=== PATIENT | female | born 1970 | race Caucasian/White ===

== ENCOUNTER → 2024-04-18 | Outpatient (CLI) | payer BC, SELFPAY ==
[2024-04-23 06:47] LABS: HIV Ag/Ab, 4th Gen NON-REACTIVE
== END | disposition home or self-care (01) ==
LOC: COPL 16:48
PROVIDERS: PCP Family Medicine; Referring Provider Psychiatry & Neurology Neurology; Visit Provider Psychiatry & Neurology Neurology
DX: G35 Multiple sclerosis (principal)
CPT/HCPCS: 36415; 87389

== ENCOUNTER 2024-06-29 13:52 | Outpatient (AMB) | payer BC, SELFPAY ==
[2024-06-29 14:28] VITALS: BP 115/78; PULSE 74; RESP 19; TEMP 36.4; O2SAT 99; BMI 27.8
--- NOTE | 2024-06-29 14:28 | PD.ORTHCLVIS ---
Vital signs 06/29/24 14:28 Height 1.6 m Height Method Stated Weight 71.441 kg Weight Measurement Method Standing Scale BMI 27.8 BP 115/78 Blood Pressure Source Automatic Cuff Blood Pressure Location Right Upper Arm Position Sitting Respiration 19 Pulse 74 Pulse Source Monitor Temp 97.6 F Temp Source Temporal Artery Scan Pulse Oximetry (%) 99 Oxygen Delivery Method Room Air Med/Allergies Allergies & Medications Allergies Penicillins Allergy (Mild, Verified 06/29/24 14:29) Rash Sulfa (Sulfonamide Antibiotics) Allergy (Mild, Verified 06/29/24 14:29) Rash Medication Reconciliation duloxetine 60 mg capsule,delayed release (Cymbalta) 60 mg PO QDAY 12/21/22 [History Confirmed 06/29/24] multivitamin 1 tab PO QAM 12/21/22 [History Confirmed 06/29/24] meloxicam 7.5 mg tablet 7.5 mg PO QDAY #45 tabs 06/29/24 [Rx] Exam Exam Patient is in no acute distress and is cooperative with the examination today. Breathing is nonlabored. In no respiratory distress. Bilateral extremities were evaluated and demonstrates sensation intact to light touch. Palpable pedal pulses are present. No significant edema is present. Bilateral hips were examined. The patient has no pain with log roll of the hips. Internal rotation to 30 degrees and external rotation to 30 degrees is painless. Negative FADIR. The left knee was examined. The left knee is in varus alignment. Range of motion from 0-115 degrees. Knee is stable to varus and valgus as well as AP translation with <5mm. Patient has a negative McMurrays. There is no pain with patellofemoral compression and no crepitus noted. The knee is tender to palpation medially. The right knee was also examined. The right knee is in varus alignment. Range of motion from 0-120 degrees. Knee is stable to varus and valgus as well as AP translation with <5mm. Patient has a negative McMurrays. There is no pain with patellofemoral compression and no crepitus noted. The knee is tender to palpation medially. Assessment and Plan Problem List (1) Degenerative arthritis of knee, bilateral: Status: Acute Plan: Patient is a 53-year-old female with bilateral knee pain and bilateral knee arthritis. She has tried PRP and some conservative treatment. She would like bilateral knee injections. He will need new x-rays as been over 2 years. We will see her back consider x-rays and we will get authorization for gel injections as she is looking for a noncortisone option We will see her back approximately 2 to 3 weeks for x-ray results of the injections Office Procedures GNS Level of Care Nursing/Assessment Patient Status: Initial/New Patient Nursing Assessment/Reassesment: Medication Reconciliation, Update PMH in EMR and Vital Signs Coordination of Care: Complex Care and Chronic Disease 1-5, Education Complex Pt/Fam, Consent,records obtained, informed consent, Results/Orders obtained and Staff clarify orders Special Needs: Language special needs New Patient Charge New Patient Point Assignment: 1094 New Patient Point Charge: 911 EMERGENCY SERVICES DISPATCHER Level 3 ([id number]) MA Intake Visit Data Collection New Patient or Established: New Patient [place] [facility] [place] Reason for Visit:: BILATERAL KNEE Seen by Clinical Staff ONLY (RN/MA): No Verbal consent obtained for Telemed visit?: No Medical Malpractice Paralegal Required: No PCP or OBGYN visit in last 3 months: Yes Hx Now: No Do You Feel Safe at Home: Yes Authorities Contacted: N/A Questionairres Past Medical History Past Medical History Have you ever been diagnosed with any of the following: Neurological Problems Seizures: No Peripheral Neuropathy: Yes Cardiology Problems Congestive Heart Failure: No Varicose Veins: Yes Respiratory Problems Chronic Obstructive Pulmonary Disease (COPD): No Stomache/Intestinal Problems Hepatitis: No Genital/Urinary Problems Renal Disease: No Reproductive Problems Previous Pregnancies: Yes Musculoskeletal Problems Arthritis: Yes Endocrine Problems Diabetes Mellitus Type 1: No Diabetes Mellitus Type 2: No Psychologic Problems Depression: Yes Other Problems Hospitalization: No Shingles: No Blood Transfusions: No Blood Transfusion Reaction: No Anesthesia Reactions: No MRSA: No Cancer: No Subjective Visit Visit for: new patient and knee Immunization / Flu Flu Vaccine in the Last 12 Months: Yes Flu Vaccine Exclusion Criteria: Already Received History of Present Illness Chief complaint: BILATERAL KNEE PAIN Carin is a pleasant 53-year-old female with bilateral knee pain worse on the left. She has had prior PRP. She reports it helps for about a year. The pain is primarily on the medial aspect of her knee. She has not had any cortisone or physical therapy. She has tried motrin Personal History Occupation: UNEMPLOYED Red flag PMH: none BMI Counceling provided: No Pain Pain level (0-10): 8 Pain duration: ALL DAY Pain location: anterior Pain quality: sharp, dull and aching Pain timing: night, increases with activity and stairs Associated signs & symptoms: none Ambulatory data Ambulatory device: none Treatments Improvement with previous injections: No Improvement with PT: No Improvement with NSAIDS: n/a Review of Systems Review of Systems: All systems negative unless otherwise noted in HPI.
== END 2024-06-29 14:52 | disposition home or self-care (01) ==
LOC: HODSRG 13:52
PROVIDERS: PCP Family Medicine; Referring Provider Family Medicine; Supervising Provider Orthopaedic Surgery Adult Reconstructive Orthopaedic Surgery; Visit Provider Orthopaedic Surgery Adult Reconstructive Orthopaedic Surgery
DX: M17.0 Bilateral primary osteoarthritis of knee (principal); M25.562 Pain in left knee; M25.561 Pain in right knee
CPT/HCPCS: 99203; G0463

== ENCOUNTER → 2024-06-29 | Outpatient (CLI) | payer BC, SELFPAY ==
--- NOTE | 2024-06-29 15:16 | XR_ITS ---
Examination: Bilateral knees 2 views Right lateral knee left lateral knee 2 views Bilateral axial knees single view Exam date and time: June 29, 2024 1555 hours INDICATIONS: Bilateral knee pain beginning several years ago. TECHNIQUE: Bilateral AP knees standing single view, bilateral PA knees standing single view flexion 30 degrees Standing right lateral knee left lateral knee 2 views Bilateral axial knees single view total 5 views FINDINGS: Moderate osteopenia Bilateral mild narrowing medial joint spaces Mild right moderate left patellofemoral joint narrowing No fracture or dislocation IMPRESSION: Bilateral mild narrowing medial joint spaces Mild narrowing right patellofemoral joint Moderate narrowing left patellofemoral joint
== END | disposition home or self-care (01) ==
PROVIDERS: PCP Family Medicine; Referring Provider Orthopaedic Surgery Adult Reconstructive Orthopaedic Surgery; Visit Provider Orthopaedic Surgery Adult Reconstructive Orthopaedic Surgery
DX: M25.862 Other specified joint disorders, left knee (principal); M25.861 Other specified joint disorders, right knee
CPT/HCPCS: 73564

== ENCOUNTER 2024-07-17 13:13 | Outpatient (AMB) | payer BC, SELFPAY ==
[2024-07-17 13:23] VITALS: BP 147/84; PULSE 73; RESP 18; TEMP 36.8; O2SAT 96; BMI 28.4
--- NOTE | 2024-07-17 13:23 | PD.ORTHCLVIS ---
Vital signs 07/17/24 13:23 Height 1.6 m Height Method Stated Weight 72.802 kg Weight Measurement Method Standing Scale BMI 28.4 BP 147/84 H Blood Pressure Source Automatic Cuff Blood Pressure Location Right Upper Arm Position Sitting Respiration 18 Pulse 73 Pulse Source Monitor Temp 98.2 F Temp Source Temporal Artery Scan Pulse Oximetry (%) 96 Oxygen Delivery Method Room Air Med/Allergies Allergies & Medications Allergies Penicillins Allergy (Mild, Verified 07/17/24 13:26) Rash Sulfa (Sulfonamide Antibiotics) Allergy (Mild, Verified 07/17/24 13:26) Rash Medication Reconciliation duloxetine 60 mg capsule,delayed release (Cymbalta) 60 mg PO QDAY 12/21/22 [History Confirmed 07/17/24] multivitamin 1 tab PO QAM 12/21/22 [History Confirmed 07/17/24] meloxicam 7.5 mg tablet 7.5 mg PO QDAY #45 tabs 06/29/24 [Rx Confirmed 07/17/24] Exam Exam Patient is in no acute distress and is cooperative with the examination today. Breathing is nonlabored. In no respiratory distress. Bilateral extremities were evaluated and demonstrates sensation intact to light touch. Palpable pedal pulses are present. No significant edema is present. Bilateral hips were examined. The patient has no pain with log roll of the hips. Internal rotation to 30 degrees and external rotation to 30 degrees is painless. Negative FADIR. The left knee was examined. The left knee is in varus alignment. Range of motion from 0-115 degrees. Knee is stable to varus and valgus as well as AP translation with <5mm. Patient has a negative McMurrays. There is no pain with patellofemoral compression and no crepitus noted. The knee is tender to palpation medially. The right knee was also examined. The right knee is in varus alignment. Range of motion from 0-120 degrees. Knee is stable to varus and valgus as well as AP translation with <5mm. Patient has a negative McMurrays. There is no pain with patellofemoral compression and no crepitus noted. The knee is tender to palpation medially. Bilateral knees x-rays demonstrate mild to moderate arthritis and joint space narrowing Assessment and Plan Problem List (1) Degenerative arthritis of knee, bilateral: Status: Acute Plan: Patient is a 53-year-old female with bilateral knee pain and bilateral knee arthritis. She has tried PRP and some conservative treatment. She would like bilateral knee injections Of hyaluronic acid Recommend knee cortisone injections as patient would like to proceed with conservative treatment at this time. The risks and benefits of the procedure were reviewed with the patient and patient gave verbal consent to continue with the procedure. Procedure: performed by Dr. Ashby Using sterile technique the Bilateral knees were thoroughly prepped with alcohol, and 2 syringes of Synvisc 1 were used with 1 in each knee were injected into each knee without resistance into the medial tibial femoral joint space. The patient tolerated the procedure well. Office Procedures GNS Level of Care Nursing/Assessment Patient Status: Established Patient Nursing Assessment/Reassesment: Medication Reconciliation, Update PMH in EMR and Vital Signs Coordination of Care: Complex Care and Chronic Disease 1-5, Education Complex Pt/Fam, Consent,records obtained, informed consent, Results/Orders obtained and Staff clarify orders Established Patient Charge Established Patient Point Assignment: 95 Established Patient Point Charge: EP Level 3 (80-115) Surgical Proc/IM SQ injection Major Surgical Procedure: Yes (KNEE INJECTION ) Medication Given Medication Given Medication Given: Yes Documented Dose Given: 2 Route: Infiitration Medication Given Medication Given Medication Given: Yes Documented Dose Given: 2 Office Meds Hyalgan 10 mg/mL intra-articular syringe Performing Provider: Prateek Ashby MD Performing Location: [facility] Administered by: Prateek Ashby MD on 07/17/24 14:35 Dose Route Admin Location Dispensed Lot Number Expiration Date [facility] [place] [employer] 20 mg intra-articular 2 mL [id number] 12/03/26 [id number] Hyalgan 10 mg/mL intra-articular syringe Performing Provider: Prateek Ashby MD Performing Location: [facility] Administered by: Prateek Ashby MD on 07/17/24 14:35 Dose Route Admin Location Dispensed Lot Number Expiration Date [facility] [place] Commercial [employer] Manager 20 mg intra-articular 2 mL MA Intake Visit Data Collection New Patient or Established: Established Patient (seen at [facility] within 3 years) Reason for Visit:: F/U XRAYS AND GEL INJECTIONS Seen by Clinical Staff ONLY (RN/MA): No Verbal consent obtained for Telemed visit?: No Operations And Intelligence Assistant Required: No PCP or OBGYN visit in last 3 months: Yes Hx Now: No Do You Feel Safe at Home: Yes Authorities Contacted: N/A Questionairres Past Medical History Past Medical History Have you ever been diagnosed with any of the following: Neurological Problems Seizures: No Peripheral Neuropathy: Yes Cardiology Problems Congestive Heart Failure: No Varicose Veins: Yes Respiratory Problems Chronic Obstructive Pulmonary Disease (COPD): No Stomache/Intestinal Problems Hepatitis: No Genital/Urinary Problems Renal Disease: No Reproductive Problems Previous Pregnancies: Yes Musculoskeletal Problems Arthritis: Yes Endocrine Problems Diabetes Mellitus Type 1: No Diabetes Mellitus Type 2: No Psychologic Problems Depression: Yes Other Problems Hospitalization: No Shingles: No Blood Transfusions: No Blood Transfusion Reaction: No Anesthesia Reactions: No MRSA: No Cancer: No Subjective Visit Visit for: follow up visit, knee, x-rays and injections Immunization / Flu Flu Vaccine in the Last 12 Months: No Flu Vaccine Exclusion Criteria: No Exclusion Criteria History of Present Illness Chief complaint: F/U XRAYS & GEL INJECTIONS Carin is a pleasant 53-year-old female with bilateral knee pain worse on the left. She has had prior PRP. She reports it helps for about a year. The pain is primarily on the medial aspect of her knee. She has not had any cortisone or physical therapy. She has tried motrin. We prescribed her meloxicam last time and she reports she is doing well from this. Personal History Occupation: UNEMPLOYED Red flag PMH: none BMI Counceling provided: No Pain Pain level (0-10): 5 Pain duration: ALL DAY Pain location: inside (medial), outside (lateral), anterior and posterior Pain quality: sharp, dull and aching Pain timing: night, increases with activity and stairs Associated signs & symptoms: none Ambulatory data Ambulatory device: none Treatments Improvement with previous injections: No Improvement with PT: No Improvement with NSAIDS: no Review of Systems Review of Systems: All systems negative unless otherwise noted in HPI.
== END 2024-07-17 13:38 | disposition home or self-care (01) ==
LOC: HODSRG 13:14
PROVIDERS: PCP Family Medicine; Referring Provider Family Medicine; Supervising Provider Orthopaedic Surgery Adult Reconstructive Orthopaedic Surgery; Visit Provider Orthopaedic Surgery Adult Reconstructive Orthopaedic Surgery
DX: M17.0 Bilateral primary osteoarthritis of knee (principal); M25.562 Pain in left knee; M25.561 Pain in right knee
CPT/HCPCS: 20610; 99213; G0463; J7325

== ENCOUNTER 2024-09-20 14:37 | Outpatient (AMB) | payer BC, SELFPAY ==
[2024-09-20 14:46] VITALS: BP 119/82; PULSE 83; RESP 17; TEMP 36.8; O2SAT 98; BMI 27.6
--- NOTE | 2024-09-20 14:46 | PD.ORTHCLVIS ---
Vital signs 09/20/24 14:46 Height 1.6 m Height Method Stated Weight 70.902 kg Weight Measurement Method Standing Scale BMI 27.6 BP 119/82 Blood Pressure Source Automatic Cuff Blood Pressure Location Right Upper Arm Position Sitting Respiration 17 Pulse 83 Pulse Source Monitor Temp 98.3 F Temp Source Temporal Artery Scan Pulse Oximetry (%) 98 Oxygen Delivery Method Room Air Med/Allergies Allergies & Medications Allergies Penicillins Allergy (Mild, Verified 09/20/24 14:47) Rash Sulfa (Sulfonamide Antibiotics) Allergy (Mild, Verified 09/20/24 14:47) Rash Medication Reconciliation duloxetine 60 mg capsule,delayed release (Cymbalta) 60 mg PO QDAY 12/21/22 [History Confirmed 09/20/24] multivitamin 1 tab PO QAM 12/21/22 [History Confirmed 09/20/24] meloxicam 7.5 mg tablet 7.5 mg PO QDAY #45 tabs 06/29/24 [Rx Confirmed 09/20/24] meloxicam 7.5 mg tablet 7.5 mg PO QDAY #45 tabs 09/20/24 [Rx] meloxicam 7.5 mg tablet 7.5 mg PO QDAY #90 tabs 09/20/24 [Rx] Exam Exam Patient is in no acute distress and is cooperative with the examination today. Breathing is nonlabored. In no respiratory distress. Bilateral extremities were evaluated and demonstrates sensation intact to light touch. Palpable pedal pulses are present. No significant edema is present. Bilateral hips were examined. The patient has no pain with log roll of the hips. Internal rotation to 30 degrees and external rotation to 30 degrees is painless. Negative FADIR. The left knee was examined. The left knee is in varus alignment. Range of motion from 0-115 degrees. Knee is stable to varus and valgus as well as AP translation with <5mm. Patient has a negative McMurrays. There is no pain with patellofemoral compression and no crepitus noted. The knee is tender to palpation medially. The right knee was also examined. The right knee is in varus alignment. Range of motion from 0-120 degrees. Knee is stable to varus and valgus as well as AP translation with <5mm. Patient has a negative McMurrays. There is no pain with patellofemoral compression and no crepitus noted. The knee is tender to palpation medially. Bilateral knees x-rays demonstrate mild to moderate arthritis and joint space narrowing Assessment and Plan Problem List (1) Degenerative arthritis of knee, bilateral: Status: Acute Plan: Patient is a 53-year-old female with bilateral knee pain and bilateral knee arthritis. She has tried PRP and some conservative treatment. She has done well with hyaluronic acid injections. She reports the back is actually what is bothering her right now Office Procedures GNS Level of Care Nursing/Assessment Patient Status: Established Patient Nursing Assessment/Reassesment: Medication Reconciliation, Update PMH in EMR and Vital Signs Coordination of Care: Complex Care and Chronic Disease 1-5, Consent,records obtained, informed consent, Education Simp Pt/Fam, Results/Orders obtained and Staff clarify orders Established Patient Charge Established Patient Point Assignment: 90 Established Patient Point Charge: EP Level 3 (80-115) MA Intake Visit Data Collection New Patient or Established: Established Patient (seen at [facility] within 3 years) Reason for Visit:: FU BILAT KNEE PAIN, LEFT HIP PAIN Seen by Clinical Staff ONLY (RN/MA): No Major League Baseball Player Required: No PCP or OBGYN visit in last 3 months: Yes Hx Now: No Do You Feel Safe at Home: Yes Authorities Contacted: N/A Questionairres Past Medical History Past Medical History Have you ever been diagnosed with any of the following: Neurological Problems Seizures: No Peripheral Neuropathy: Yes Cardiology Problems Congestive Heart Failure: No Varicose Veins: Yes Respiratory Problems Chronic Obstructive Pulmonary Disease (COPD): No Smoking: No Smoking Cessation Counseling: No Smoking Exposure: No Tobacco Use: No Stomache/Intestinal Problems Hepatitis: No Genital/Urinary Problems Renal Disease: No Reproductive Problems Previous Pregnancies: Yes Musculoskeletal Problems Arthritis: Yes Endocrine Problems Diabetes Mellitus Type 1: No Diabetes Mellitus Type 2: No Psychologic Problems Depression: Yes Other Problems Hospitalization: No Shingles: No Blood Transfusions: No Blood Transfusion Reaction: No Anesthesia Reactions: No MRSA: No Cancer: No Subjective Visit Visit for: follow up visit, hip (LEFT HIP) and knee (BILATERAL KNEE ) Immunization / Flu Flu Vaccine in the Last 12 Months: Yes Flu Vaccine Exclusion Criteria: Already Received History of Present Illness Chief complaint: F/U XRAYS & GEL INJECTIONS Carin is a pleasant 53-year-old female with bilateral knee pain worse on the left. She has had prior PRP. She reports it helps for about a year. The pain is primarily on the medial aspect of her knee.She is doing well From her knee but she recently has had back pain. She has done well with the hyaluronic acid injections Personal History Occupation: UNEMPLOYED Red flag PMH: none BMI Counceling provided: No Pain Pain level (0-10): 5 Pain duration: ALL DAY Pain location: anterior Pain quality: sharp and shocking Pain timing: night and increases with activity Associated signs & symptoms: weakness and stiffness Ambulatory data Ambulatory device: none Treatments Number of previous injections: 1 Improvement with previous injections: Yes Number of Physical Therapy sessions: 0 Improvement with PT: No Improvement with NSAIDS: n/a Review of Systems Review of Systems: All systems negative unless otherwise noted in HPI.
== END 2024-09-20 15:01 | disposition home or self-care (01) ==
LOC: HODSRG 14:37
PROVIDERS: PCP Family Medicine; Referring Provider Family Medicine; Supervising Provider Orthopaedic Surgery Adult Reconstructive Orthopaedic Surgery; Visit Provider Orthopaedic Surgery Adult Reconstructive Orthopaedic Surgery
DX: M17.0 Bilateral primary osteoarthritis of knee (principal); M25.562 Pain in left knee; M25.561 Pain in right knee
CPT/HCPCS: 99213; G0463

== ENCOUNTER → 2024-10-04 | Outpatient (CLI) | payer BC, SELFPAY ==
[2024-10-04 16:41] LABS: Basophils % (Auto) 1 % (0-2.5); Eosinophils # (Auto) 0.2 Thou/mm3 (0.0-0.5); Eosinophils % (Auto) 3 % (0-10); Hematocrit 37.9 % (36.0-46.0); Hemoglobin 12.8 g/dL (12.0-16.0); Immature Granulocytes % (Auto) 0 % (0-0); Immature Granulocytes Auto 0.01 Thou/mm3 (0.00-0.00); Lymphocytes # (Auto) 1.2 Thou/mm3 (1.0-4.8); Lymphocytes % (Auto) 22 % (10-50); Mean Corpuscular HGB Conc 33.8 g/dl (31.0-37.0); Mean Corpuscular Hemoglobin 29.3 pg (25.0-35.0); Mean Corpuscular Volume 87 fL (80-100); Monocytes # (Auto) 0.7 Thou/mm3 (0.0-0.8); Monocytes % (Auto) 13 % (0-12); Neutrophils # (Auto) 3.2 Thou/mm3 (1.8-7.7); Neutrophils % (Auto) 60 % (37-80); Nucleated Red Blood Cell % 0 /100 WBC (0); Platelet Count 263 Thou/mm3 (140-440); RDW Standard Deviation 44.1 fL (36.4-46.3); Red Blood Count 4.37 Miln/mm3 (4.00-5.20); White Blood Count 5.3 Thou/mm3 (3.6-11.0)
[2024-10-04 16:50] LABS: Alanine Aminotransferase 31 U/L (10-49); Alkaline Phosphatase 76 U/L (46-116); Aspartate Amino Transferase 30 U/L (0-34); Bilirubin,Total 0.4 mg/dL (0.3-1.2)
[2024-10-08 17:49] LABS: CD19 Percentage 1 % (6-29); CD19, Absolute <20 cells/uL (110-660); CD3 Percentage 86 % (57-85); CD3, Absolute 901 cells/uL (840-3060); CD3-CD16+CD56+ % 13 % (4-25); CD3-CD16+CD56+ (Abs) 140 cells/uL (70-760); CD4 Percentage 74 % (30-61); CD4, Absolute 772 cells/uL (490-1740); CD4/CD8 Ratio 5.59 (0.86-5.00); CD8 Percentage 13 % (12-42); CD8, Absolute 138 cells/uL (180-1170)
[2024-10-09 07:04] LABS: IgG, Serum* 1275 mg/dL (600-1640); IgM, Serum* 21 mg/dL (50-300); Lymphocytes, Absolute 1052 cells/uL (850-3900)
== END | disposition home or self-care (01) ==
LOC: COPL 14:50
PROVIDERS: PCP Family Medicine; Referring Provider Psychiatry & Neurology Neurology; Visit Provider Psychiatry & Neurology Neurology
DX: G35 Multiple sclerosis (principal); D72.810 Lymphocytopenia; Z51.81 Encounter for therapeutic drug level monitoring; Z79.899 Other long term (current) drug therapy
CPT/HCPCS: 36415; 82247; 82784; 84075; 84450; 84460; 85025; 86355; 86357; 86359; 86360

== ENCOUNTER → 2024-10-08 | Outpatient (CLI) | payer BC, SELFPAY ==
[2024-10-08 07:50] LABS: Quantiferon-TB* See Sep Rpt
== END | disposition home or self-care (01) ==
LOC: COPL 07:31
PROVIDERS: PCP Family Medicine; Referring Provider Psychiatry & Neurology Neurology; Visit Provider Psychiatry & Neurology Neurology
DX: G35 Multiple sclerosis (principal); D72.810 Lymphocytopenia; Z51.81 Encounter for therapeutic drug level monitoring; Z79.899 Other long term (current) drug therapy
CPT/HCPCS: 86480

== ENCOUNTER 2024-11-27 14:14 | Outpatient (AMB) | payer BC, SELFPAY ==
[2024-11-27 14:24] VITALS: BP 117/80; PULSE 73; RESP 18; TEMP 36.4; O2SAT 95; BMI 28.3
--- NOTE | 2024-11-27 14:24 | ORTHONT_ITS ---
Vital signs 11/27/24 14:24 11/27/24 14:27 Height 1.6 m Height Method Stated Weight 72.66 kg Weight Measurement Method Standing Scale BMI 28.3 BP 117/80 117/80 Blood Pressure Source Automatic Cuff Blood Pressure Location Left Upper Arm Position Sitting Respiration 18 18 Pulse 73 73 Pulse Source Monitor Temp 97.5 F 97.5 F Temp Source Temporal Artery Scan Pulse Oximetry (%) 95 95 Oxygen Delivery Method Room Air Med/Allergies Allergies & Medications Allergies Penicillins Allergy (Mild, Verified 11/27/24 14:25) Rash Sulfa (Sulfonamide Antibiotics) Allergy (Mild, Verified 11/27/24 14:25) Rash Medication Reconciliation duloxetine 60 mg capsule,delayed release (Cymbalta) 60 mg PO QDAY 12/21/22 [History Confirmed 11/27/24] multivitamin 1 tab PO QAM 12/21/22 [History Confirmed 11/27/24] meloxicam 7.5 mg tablet 7.5 mg PO QDAY #45 tabs 06/29/24 [Rx Confirmed 11/27/24] meloxicam 7.5 mg tablet 7.5 mg PO QDAY #45 tabs 09/20/24 [Rx Confirmed 11/27/24] meloxicam 7.5 mg tablet 7.5 mg PO QDAY #90 tabs 09/20/24 [Rx Confirmed 11/27/24] Exam Exam Patient is in no acute distress and is cooperative with the examination today. Breathing is nonlabored. In no respiratory distress. Bilateral extremities were evaluated and demonstrates sensation intact to light touch. Palpable pedal pulses are present. No significant edema is present. Bilateral hips were examined. The patient has no pain with log roll of the hips. Internal rotation to 30 degrees and external rotation to 30 degrees is painless. Negative FADIR. The left knee was examined. The left knee is in varus alignment. Range of motion from 0-115 degrees. Knee is stable to varus and valgus as well as AP translation with <5mm. Patient has a negative McMurrays. There is no pain with patellofemoral compression and no crepitus noted. The knee is tender to palpation medially. The right knee was also examined. The right knee is in varus alignment. Range of motion from 0-120 degrees. Knee is stable to varus and valgus as well as AP translation with <5mm. Patient has a negative McMurrays. There is no pain with patellofemoral compression and no crepitus noted. The knee is tender to palpation medially. Bilateral knees x-rays demonstrate mild to moderate arthritis and joint space narrowing Assessment and Plan Problem List (1) Degenerative arthritis of knee, bilateral: Status: Acute Plan: Patient is a 53-year-old female with bilateral knee pain and bilateral knee arthritis. She has tried PRP and some conservative treatment. She has done well with hyaluronic acid injections. Office Procedures GNS Level of Care Nursing/Assessment Patient Status: Established Patient Nursing Assessment/Reassesment: Medication Reconciliation, Update PMH in EMR and Vital Signs Coordination of Care: Complex Care and Chronic Disease 1-5, Education Complex Pt/Fam, Consent,records obtained, informed consent, Results/Orders obtained and Staff clarify orders Established Patient Charge Established Patient Point Assignment: 95 Established Patient Point Charge: EP Level 3 (80-115) MA Intake Visit Data Collection New Patient or Established: Established Patient (seen at [facility] within 3 years) Reason for Visit:: FOLLOW UP Seen by Clinical Staff ONLY (RN/MA): No PCP or OBGYN visit in last 3 months: Yes Hx Now: No Do You Feel Safe at Home: Yes Authorities Contacted: N/A Questionairres Past Medical History Past Medical History Have you ever been diagnosed with any of the following: Neurological Problems Seizures: No Peripheral Neuropathy: Yes Cardiology Problems Congestive Heart Failure: No Varicose Veins: Yes Respiratory Problems Chronic Obstructive Pulmonary Disease (COPD): No Smoking: No Smoking Cessation Counseling: No Smoking Exposure: No Tobacco Use: No Stomache/Intestinal Problems Hepatitis: No Genital/Urinary Problems Renal Disease: No Reproductive Problems Previous Pregnancies: Yes Musculoskeletal Problems Arthritis: Yes Endocrine Problems Diabetes Mellitus Type 1: No Diabetes Mellitus Type 2: No Psychologic Problems Depression: Yes Other Problems Hospitalization: No Shingles: No Blood Transfusions: No Blood Transfusion Reaction: No Anesthesia Reactions: No MRSA: No Cancer: No Subjective Visit Visit for: follow up visit and knee Immunization / Flu Flu Vaccine in the Last 12 Months: No Flu Vaccine Exclusion Criteria: No Exclusion Criteria History of Present Illness Chief complaint: F/U XRAYS & GEL INJECTIONS Carin is a pleasant 53-year-old female with bilateral knee pain worse on the left. She has had prior PRP. She reports it helps for about a year. The pain is primarily on the medial aspect of her knee.She is doing well From her knee but she recently has had back pain. She had hyaluronic acid injections At the last visit reports that they are helping. She would like to get new ones in approximately 6 weeks once they start wearing off Personal History Occupation: UNEMPLOYED Red flag PMH: none BMI Counceling provided: No Pain Pain level (0-10): 4 Pain duration: ON AND OFF Pain location: inside (medial) and anterior Pain quality: aching Pain timing: increases with activity Associated signs & symptoms: none Ambulatory data Ambulatory device: none Treatments Number of previous injections: 1 Improvement with previous injections: No Number of Physical Therapy sessions: 0 Improvement with PT: No Improvement with NSAIDS: no Review of Systems Review of Systems: All systems negative unless otherwise noted in HPI.
--- NOTE | 2024-11-27 14:25 | ORTHONT_ITS ---
Vital signs 11/27/24 14:24 Height 1.6 m Height Method Stated Weight 72.66 kg Weight Measurement Method Standing Scale BMI 28.3 BP 117/80 Blood Pressure Source Automatic Cuff Blood Pressure Location Left Upper Arm Position Sitting Respiration 18 Pulse 73 Pulse Source Monitor Temp 97.5 F Temp Source Temporal Artery Scan Pulse Oximetry (%) 95 Oxygen Delivery Method Room Air Med/Allergies Allergies & Medications Allergies Penicillins Allergy (Mild, Verified 11/27/24 14:25) Rash Sulfa (Sulfonamide Antibiotics) Allergy (Mild, Verified 11/27/24 14:25) Rash Medication Reconciliation duloxetine 60 mg capsule,delayed release (Cymbalta) 60 mg PO QDAY 12/21/22 [History Confirmed 11/27/24] multivitamin 1 tab PO QAM 12/21/22 [History Confirmed 11/27/24] meloxicam 7.5 mg tablet 7.5 mg PO QDAY #45 tabs 06/29/24 [Rx Confirmed 11/27/24] meloxicam 7.5 mg tablet 7.5 mg PO QDAY #45 tabs 09/20/24 [Rx Confirmed 11/27/24] meloxicam 7.5 mg tablet 7.5 mg PO QDAY #90 tabs 09/20/24 [Rx Confirmed 11/27/24] Exam Exam Patient is in no acute distress and is cooperative with the examination today. Breathing is nonlabored. In no respiratory distress. Bilateral extremities were evaluated and demonstrates sensation intact to light touch. Palpable pedal pulses are present. No significant edema is present. Bilateral hips were examined. The patient has no pain with log roll of the hips. Internal rotation to 30 degrees and external rotation to 30 degrees is painless. Negative FADIR. The left knee was examined. The left knee is in varus alignment. Range of motion from 0-115 degrees. Knee is stable to varus and valgus as well as AP translation with <5mm. Patient has a negative McMurrays. There is no pain with patellofemoral compression and no crepitus noted. The knee is tender to palpation medially. The right knee was also examined. The right knee is in varus alignment. Range of motion from 0-120 degrees. Knee is stable to varus and valgus as well as AP translation with <5mm. Patient has a negative McMurrays. There is no pain with patellofemoral compression and no crepitus noted. The knee is tender to palpation medially. Bilateral knees x-rays demonstrate mild to moderate arthritis and joint space narrowing Assessment and Plan Problem List (1) Degenerative arthritis of knee, bilateral: Status: Acute Plan: Patient is a 53-year-old female with bilateral knee pain and bilateral knee arthritis. She has tried PRP and some conservative treatment. She has done well with hyaluronic acid injections. Office Procedures GNS Level of Care Nursing/Assessment Patient Status: Established Patient Nursing Assessment/Reassesment: Medication Reconciliation, Update PMH in EMR and Vital Signs Coordination of Care: Complex Care and Chronic Disease 1-5, Education Complex Pt/Fam, Consent,records obtained, informed consent, Results/Orders obtained and Staff clarify orders Established Patient Charge Established Patient Point Assignment: 95 Established Patient Point Charge: EP Level 3 (80-115) MA Intake Visit Data Collection New Patient or Established: Established Patient (seen at [facility] within 3 years) Reason for Visit:: FOLLOW UP Seen by Clinical Staff ONLY (RN/MA): No Communications Engineer Required: No PCP or OBGYN visit in last 3 months: Yes Hx Now: No Do You Feel Safe at Home: Yes Authorities Contacted: N/A Questionairres Past Medical History Past Medical History Have you ever been diagnosed with any of the following: Neurological Problems Seizures: No Peripheral Neuropathy: Yes Cardiology Problems Congestive Heart Failure: No Varicose Veins: Yes Respiratory Problems Chronic Obstructive Pulmonary Disease (COPD): No Smoking: No Smoking Cessation Counseling: No Smoking Exposure: No Tobacco Use: No Stomache/Intestinal Problems Hepatitis: No Genital/Urinary Problems Renal Disease: No Reproductive Problems Previous Pregnancies: Yes Musculoskeletal Problems Arthritis: Yes Endocrine Problems Diabetes Mellitus Type 1: No Diabetes Mellitus Type 2: No Psychologic Problems Depression: Yes Other Problems Hospitalization: No Shingles: No Blood Transfusions: No Blood Transfusion Reaction: No Anesthesia Reactions: No MRSA: No Cancer: No Subjective Visit Visit for: follow up visit and knee Immunization / Flu Flu Vaccine in the Last 12 Months: No Flu Vaccine Exclusion Criteria: No Exclusion Criteria History of Present Illness Chief complaint: F/U XRAYS & GEL INJECTIONS Carin is a pleasant 53-year-old female with bilateral knee pain worse on the left. She has had prior PRP. She reports it helps for about a year. The pain is primarily on the medial aspect of her knee.She is doing well From her knee but she recently has had back pain. She had hyaluronic acid injections At the last visit reports that they are helping. She would like to get new ones in approximately 6 weeks once they start wearing off Personal History Occupation: UNEMPLOYED Red flag PMH: none BMI Counceling provided: No Pain Pain level (0-10): 4 Pain duration: ON AND OFF Pain location: inside (medial) and anterior Pain quality: aching Pain timing: increases with activity Associated signs & symptoms: none Ambulatory data Ambulatory device: none Treatments Number of previous injections: 1 Improvement with previous injections: No Number of Physical Therapy sessions: 0 Improvement with PT: No Improvement with NSAIDS: no Review of Systems Review of Systems: All systems negative unless otherwise noted in HPI.
[2024-11-27 14:27] VITALS: BP 117/80; PULSE 73; RESP 18; TEMP 36.4; O2SAT 95
== END 2024-11-27 14:26 | disposition home or self-care (01) ==
LOC: HODSRG 14:14
PROVIDERS: PCP Family Medicine; Referring Provider Family Medicine; Supervising Provider Orthopaedic Surgery Adult Reconstructive Orthopaedic Surgery; Visit Provider Orthopaedic Surgery Adult Reconstructive Orthopaedic Surgery
DX: M17.0 Bilateral primary osteoarthritis of knee (principal); M25.562 Pain in left knee; M25.561 Pain in right knee
CPT/HCPCS: 99213; G0463

== ENCOUNTER 2025-01-15 14:57 | Outpatient (AMB) | payer BC, SELFPAY ==
--- NOTE | 2025-01-15 15:05 | PD.ORTHCLVIS ---
Vital signs 01/15/25 15:10 Height 1.6 m Height Method Measured Weight 73.028 kg Weight Measurement Method Standing Scale BMI 28.5 BP 130/87 H Blood Pressure Source Automatic Cuff Blood Pressure Location Left Upper Arm Position Sitting Respiration 18 Pulse 91 Pulse Source Monitor Temp 97.4 F Temp Source Temporal Artery Scan Pulse Oximetry (%) 96 Oxygen Delivery Method Room Air Med/Allergies Allergies & Medications Allergies Penicillins Allergy (Mild, Verified 01/15/25 15:12) Rash Sulfa (Sulfonamide Antibiotics) Allergy (Mild, Verified 01/15/25 15:12) Rash Medication Reconciliation duloxetine 60 mg capsule,delayed release (Cymbalta) 60 mg PO QDAY 12/21/22 [History Confirmed 01/15/25] multivitamin 1 tab PO QAM 12/21/22 [History Confirmed 01/15/25] meloxicam 7.5 mg tablet 7.5 mg PO QDAY #45 tabs 06/29/24 [Rx Confirmed 01/15/25] meloxicam 7.5 mg tablet 7.5 mg PO QDAY #45 tabs 09/20/24 [Rx Confirmed 01/15/25] meloxicam 7.5 mg tablet 7.5 mg PO QDAY #90 tabs 09/20/24 [Rx Confirmed 01/15/25] Exam Exam Patient is in no acute distress and is cooperative with the examination today. Breathing is nonlabored. In no respiratory distress. Bilateral extremities were evaluated and demonstrates sensation intact to light touch. Palpable pedal pulses are present. No significant edema is present. Bilateral hips were examined. The patient has no pain with log roll of the hips. Internal rotation to 30 degrees and external rotation to 30 degrees is painless. Negative FADIR. The left knee was examined. The left knee is in varus alignment. Range of motion from 0-115 degrees. Knee is stable to varus and valgus as well as AP translation with <5mm. Patient has a negative McMurrays. There is no pain with patellofemoral compression and no crepitus noted. The knee is tender to palpation medially. The right knee was also examined. The right knee is in varus alignment. Range of motion from 0-120 degrees. Knee is stable to varus and valgus as well as AP translation with <5mm. Patient has a negative McMurrays. There is no pain with patellofemoral compression and no crepitus noted. The knee is tender to palpation medially. Bilateral knees x-rays demonstrate mild to moderate arthritis and joint space narrowing Assessment and Plan Problem List (1) Degenerative arthritis of knee, bilateral: Status: Acute Plan: Patient is a 53-year-old female with bilateral knee pain and bilateral knee arthritis. She has tried PRP and some conservative treatment. She would like bilateral knee injections Of hyaluronic acid Recommend knee cortisone injections as patient would like to proceed with conservative treatment at this time. The risks and benefits of the procedure were reviewed with the patient and patient gave verbal consent to continue with the procedure. Procedure: performed by Dr. Ashby Using sterile technique the Bilateral knees were thoroughly prepped with alcohol, and 2 syringes of Synvisc 1 were used with 1 in each knee were injected into each knee without resistance into the medial tibial femoral joint space. The patient tolerated the procedure well. Office Procedures GNS Level of Care Nursing/Assessment Patient Status: Established Patient Nursing Assessment/Reassesment: Medication Reconciliation, Update PMH in EMR and Vital Signs Coordination of Care: Complex Care and Chronic Disease 1-5, Education Complex Pt/Fam, Consent,records obtained, informed consent, Results/Orders obtained and Staff clarify orders Established Patient Charge Established Patient Point Assignment: 95 Established Patient Point Charge: EP Level 3 (80-115) Surgical Proc/IM SQ injection Major Surgical Procedure: Yes (KNEE INJECTION ) Medication Given Medication Given Medication Given: Yes Documented Dose Given: 1 Route: Infiitration Medication Given Medication Given Medication Given: Yes Documented Dose Given: 1 Route: Infiitration Office Meds Hyalgan 10 mg/mL intra-articular syringe Performing Provider: Prateek Ashby MD Performing Location: [facility] Administered by: Prateek Ashby MD on 01/15/25 15:13 Dose Route Admin Location Dispensed Lot Number Expiration Date [facility] Janitor Helper 20 mg intra-articular KNEE 20 mL [id number] 08/04/27 [address]-2 [employer] Hyalgan 10 mg/mL intra-articular syringe Performing Provider: Prateek Ashby MD Performing Location: [facility] Administered by: Prateek Ashby MD on 01/15/25 15:13 Dose Route Admin Location Dispensed Lot Number Expiration Date [facility] Janitor Helper 20 mg intra-articular KNEE 20 mL [id number] 08/04/27 [address]-5 PAULETTE DIXON Intake Visit Data Collection New Patient or Established: Established Patient (seen at [facility] within 3 years) Reason for Visit:: FOLLOW UP Seen by Clinical Staff ONLY (RN/MA): No Polysomnographer Required: No PCP or OBGYN visit in last 3 months: Yes Hx Now: No Do You Feel Safe at Home: Yes Authorities Contacted: N/A Questionairres Past Medical History Past Medical History Have you ever been diagnosed with any of the following: Neurological Problems Seizures: No Peripheral Neuropathy: Yes Cardiology Problems Congestive Heart Failure: No Varicose Veins: Yes Respiratory Problems Chronic Obstructive Pulmonary Disease (COPD): No Smoking: No Smoking Cessation Counseling: No Smoking Exposure: No Tobacco Use: No Stomache/Intestinal Problems Hepatitis: No Genital/Urinary Problems Renal Disease: No Reproductive Problems Previous Pregnancies: Yes Musculoskeletal Problems Arthritis: Yes Endocrine Problems Diabetes Mellitus Type 1: No Diabetes Mellitus Type 2: No Psychologic Problems Depression: Yes Other Problems Hospitalization: No Shingles: No Blood Transfusions: No Blood Transfusion Reaction: No Anesthesia Reactions: No MRSA: No Cancer: No Subjective Visit Visit for: follow up visit and knee Immunization / Flu Flu Vaccine in the Last 12 Months: No Flu Vaccine Exclusion Criteria: No Exclusion Criteria History of Present Illness Chief complaint: F/U XRAYS & GEL INJECTIONS Carin is a pleasant 53-year-old female with bilateral knee pain worse on the left. She has had prior PRP. She reports it helps for about a year. The pain is primarily on the medial aspect of her knee.She is doing well From her knee but she recently has had back pain. She had hyaluronic acid injections At the last visit reports that they are helping. She wants to get new synvisc one injections today Personal History Occupation: UNEMPLOYED Red flag PMH: none BMI Counceling provided: No Pain Pain level (0-10): 4 Pain duration: ON AND OFF Pain location: inside (medial) and anterior Pain quality: aching Pain timing: increases with activity Associated signs & symptoms: none Ambulatory data Ambulatory device: none Treatments Number of previous injections: 1 Improvement with previous injections: No Number of Physical Therapy sessions: 0 Improvement with PT: No Improvement with NSAIDS: no Review of Systems Review of Systems: All systems negative unless otherwise noted in HPI.
[2025-01-15 15:10] VITALS: BP 130/87; PULSE 91; RESP 18; TEMP 36.3; O2SAT 96; BMI 28.5
== END 2025-01-15 15:24 | disposition home or self-care (01) ==
LOC: HODSRG 14:57
PROVIDERS: PCP Family Medicine; Referring Provider Family Medicine; Supervising Provider Orthopaedic Surgery Adult Reconstructive Orthopaedic Surgery; Visit Provider Orthopaedic Surgery Adult Reconstructive Orthopaedic Surgery
DX: M17.0 Bilateral primary osteoarthritis of knee (principal); M25.562 Pain in left knee; M25.561 Pain in right knee
CPT/HCPCS: 20610; 99213; G0463; J7325

== ENCOUNTER → 2025-04-17 | Outpatient (CLI) | payer BC, SELFPAY ==
[2025-04-17 08:40] LABS: Basophils # (Auto) 0.0 Thou/mm3 (0.0-0.2); Basophils % (Auto) 1 % (0-2.5); Eosinophils # (Auto) 0.3 Thou/mm3 (0.0-0.5); Eosinophils % (Auto) 4 % (0-10); Hematocrit 33.2 % (36.0-46.0); Hemoglobin 11.0 g/dL (12.0-16.0); Immature Granulocytes Auto 0.01 Thou/mm3 (0.00-0.00); Lymphocytes # (Auto) 1.3 Thou/mm3 (1.0-4.8); Lymphocytes % (Auto) 22 % (10-50); Mean Corpuscular HGB Conc 33.1 g/dl (31.0-37.0); Mean Corpuscular Hemoglobin 28.9 pg (25.0-35.0); Mean Corpuscular Volume 87 fL (80-100); Monocytes # (Auto) 0.9 Thou/mm3 (0.0-0.8); Monocytes % (Auto) 15 % (0-12); Neutrophils # (Auto) 3.5 Thou/mm3 (1.8-7.7); Neutrophils % (Auto) 57 % (37-80); Nucleated Red Blood Cell # 0.00 Thou/mm3 (0.00-0.00); Nucleated Red Blood Cell % 0 /100 WBC (0); Platelet Count 319 Thou/mm3 (140-440); RDW Standard Deviation 46.5 fL (36.4-46.3); Red Blood Count 3.81 Miln/mm3 (4.00-5.20); White Blood Count 6.1 Thou/mm3 (3.6-11.0)
[2025-04-17 08:50] LABS: Glucose Estimated Average 108 mg/dL (80-131); Hemoglobin A1C 5.4 % Hgb (4.8-6.0)
[2025-04-17 09:05] LABS: Collection Type, Urine Clean Catch
[2025-04-17 09:11] LABS: Vitamin D 25 Hydroxy Total 42.6 ng/mL (7.3-40.2)
[2025-04-17 09:16] LABS: Alanine Aminotransferase 26 U/L (10-49); Albumin, Serum 4.8 gm/dL (3.5-5.0); Albumin/Globulin Ratio 2.3 (1.2-2.2); Alkaline Phosphatase 55 U/L (46-116); Anion Gap 9 (7-16); Aspartate Amino Transferase 34 U/L (0-34); BUN/Creatinine Ratio 19 Ratio (12-20); Bilirubin,Total 0.7 mg/dL (0.3-1.2); Blood Urea Nitrogen 15 mg/dL (9-23); Calcium 9.0 mg/dL (8.3-10.6); Calcium (Corrected) 9.0 mg/dL (8.5-10.1); Carbon Dioxide 27.5 mMol/L (20.0-31.0); Cardiac Risk Estimate 2.3 RATIO (3.7-5.6); Chloride 106 mMol/L (98-107); Cholesterol 193 mg/dL (132-200); Creatinine (Component) 0.8 mg/dL (0.6-1.3); Globulin 2.1 gm/dL (2.3-3.5); Glucose 94 mg/dL (74-106); HDL Cholesterol 85 mg/dL (40-60); LDL Cholesterol,Calculated 87 mg/dL (0-130); Osmolality,Calculated 283 (275-295); Potassium 3.9 mMol/L (3.4-5.1); Sodium 142 mMol/L (136-145); Thyroid Stimulating Hormone 4.56 uIU/mL (0.55-4.78); Total Protein 6.9 gm/dL (5.7-8.2); Triglycerides 103 mg/dL (30-150); eGFR > 60 See Note
[2025-04-17 09:21] LABS: Bilirubin,Urine Negative (Negative); Blood,Urine Negative (Negative); Clarity,Urine Clear (Clear/Hazy); Color,Urine Yellow (Lt Yel-Yel); Culture Indicated,Urine Not Indicated; Glucose, Urine Negative (Negative); Ketones,Urine Negative (Negative); Leukocyte Esterase,Urine Negative (Negative); Nitrite,Urine Negative (Negative); PH,Urine 6.5 (5.0-7.0); Protein,Urine Negative (Neg - Trace); RBC,Urine 1 /hpf (0-3); Specific Gravity,Urine 1.019 (1.001-1.035); Squamous Epithelial Cell,Urine 1 /hpf (0-5); Urobilinogen,Urine Negative mg/dL (0.0-1.0); WBC,Urine 1 /hpf (0-5)
== END | disposition home or self-care (01) ==
LOC: COPL 07:58
PROVIDERS: PCP Family Medicine; Referring Provider Registered Nurse; Visit Provider Registered Nurse
DX: Z00.00 Encounter for general adult medical examination without abnormal findings (principal)
CPT/HCPCS: 36415; 80053; 80061; 81001; 82306; 83036; 84443; 85025